=== PATIENT | male | born 1980 | race Caucasian/White ===

== ENCOUNTER 2016-09-23 08:15 | Emergency (ER) | payer SELFPAY ==
[2016-09-23] MEDS ORDERED: ACETAMINOPHEN 500 MG TABLET ONE (08:54)
[2016-09-23] MEDS ORDERED: IBUPROFEN 600 MG TABLET ONE (08:54)
--- NOTE | 2016-09-23 09:36 | RAD ---
CHEST 2 VIEWS HISTORY: Headache and cough. Frontal and lateral chest radiographs dated 09/23/2016. COMPARISON: None. FINDINGS: FOCAL AIRSPACE OPACITY: No gross airspace consolidation. BRONCHOVASCULAR MARKINGS: Coarsened. PLEURAL EFFUSION: None. CARDIOMEDIASTINAL SILHOUETTE: Nonenlarged. PNEUMOTHORAX: None identified. OSSEOUS STRUCTURES: No grossly destructive lesions. IMPRESSION: No gross airspace consolidation. Coarsened bronchovascular markings, which can be seen in the setting of bronchitis, atypical/viral infection, or central airways disease.
== END 2016-09-23 09:48 | disposition home or self-care (01) ==
LOC: ED 08:15
DX: J11.1 Influenza due to unidentified influenza virus with other respiratory manifestations (principal)
CPT/HCPCS: 87880; 71020; 87804; 99283 ×2; A9270 ×2